=== PATIENT | male | born 1990 | race Caucasian/White ===

== ENCOUNTER 2017-04-06 15:23 | Emergency (ER) | payer BC ==
[2017-04-06 15:39] VITALS: BP 154/93
--- NOTE | 2017-04-06 16:07 | UC ---
Skin Complaint HPI - HPI Summary HPI Summary: 1.5 WEEKS OF TENDER RED FIRM AREA UNDER SCROTUM (PERINEUM) NO DRAINAGE. NO HISTORY OF ABSCESS OR MRSA. - History of Current Complaint Chief Complaint: UCSkin Time Seen by Provider: 04/06/17 15:29 Stated Complaint: PERSONAL Hx Obtained From: Patient Onset/Duration: Lasting Weeks Skin Exposure Onset/Duration: Weeks Ago Onset Severity: Moderate Current Severity: Moderate Location: Discrete - PERINEUM Character: Redness, Raised, Painful Aggravating: Touch Alleviating: Nothing Associated Signs & Symptoms: Positive: Tenderness, Red Streaks. Negative: Nausea, Vomiting, Fever, Chills, Cough, Hoarseness, Throat Tightening, Rash, Drainage Related History: Possible Reaction to: Environmental Exposure - Allergy/Home Medications Allergies/Adverse Reactions: Allergies Allergy/AdvReac Type Severity Reaction Status Date / Time Amoxicillin Allergy Intermediate hives/facial Verified 04/06/17 15:39 swelling Review of Systems Constitutional: Negative Skin: Other - 1CM X 1CM INDURATED TENDER AREA ON ANTERIOR PERINEUM Eyes: Negative ENT: Negative Respiratory: Negative Cardiovascular: Negative Gastrointestinal: Negative Genitourinary: Negative Motor: Negative Neurovascular: Negative Musculoskeletal: Negative Neurological: Negative Psychological: Negative Is Patient Immunocompromised?: No All Other Systems Reviewed And Are Negative: Yes PMH/Surg Hx/FS Hx/Imm Hx Previously Healthy: Yes - Surgical History Surgical History: Yes Surgery Procedure, Year, and Place: thyroidectomy - Family History Known Family History: Negative: Blood Disorder, Other - NO MRSA - Social History Occupation: Employed Full-time Alcohol Use: Occasionally Substance Use Type: Marijuana Substance Use Comment - Amount & Last Used: daily usage Smoking Status (MU): Former Smoker Type: Cigarettes Amount Used/How Often: 1 ppd Length of Time of Smoking/Using Tobacco: 5 yrs Have You Smoked in the Last Year: No When Did the Patient Quit Smoking/Using Tobacco: quit at age 20 Physical Exam Triage Information Reviewed: Yes Appearance: Well-Appearing, No Pain Distress, Well-Nourished Vital Signs: Initial Vital Signs Temp 98.5 F 04/06/17 15:32 Pulse 79 04/06/17 15:32 Resp 18 04/06/17 15:32 BP 154/93 04/06/17 15:32 Pulse Ox 100 04/06/17 15:32 Vital Signs Reviewed: Yes Eye Exam: Normal Eyes: Positive: Conjunctiva Clear ENT Exam: Normal ENT: Positive: Normal ENT inspection, Hearing grossly normal, Pharynx normal, TMs normal Dental Exam: Normal Neck exam: Normal Neck: Positive: Supple, Nontender, No Lymphadenopathy Respiratory Exam: Normal Respiratory: Positive: Chest non-tender, Lungs clear, Normal breath sounds, No respiratory distress, No accessory muscle use Cardiovascular Exam: Normal Cardiovascular: Positive: RRR, No Murmur, Pulses Normal Abdominal Exam: Normal Abdomen Description: Positive: Nontender, No Organomegaly Musculoskeletal Exam: Normal Musculoskeletal: Positive: Strength Intact, ROM Intact Neurological Exam: Normal Psychological Exam: Normal Skin: Positive: Other - 1CM X 1CM INDURATED TENDER AREA ON ANTERIOR PERINEUM Course/Dx - Differential Diagnoses - Skin Complaint Differential Diagnoses: Abscess, Cellulitis, Contact Dermatitis, Drug Rash, Impetigo, MRSA, Tinea - Diagnoses Provider Diagnoses: CELLULITIS ANTERIOR PERINEUM Discharge - Discharge Plan Condition: Stable Disposition: HOME Prescriptions: DOXYcycline CAP(*) [DOXYcycline 100MG CAP(*)] 100 mg PO BID #20 cap Patient Education Materials: Cellulitis (ED), Abscess (ED) Referrals: Lainey Gatica MD [Primary Care Provider] - Images Perineum Male: 1 - 1CM X 1CM INDURATED TENDER AREA ON ANTERIOR PERINEUM
== END 2017-04-06 16:05 | disposition home or self-care (01) ==
LOC: UCCORT 15:23
DX: L03.315 Cellulitis of perineum (principal); Z87.891 Personal history of nicotine dependence
CPT/HCPCS: 99212; G0463

== ENCOUNTER 2018-10-04 11:33 | Emergency (ER) | payer BC, OTHER ==
[2018-10-04 13:16] VITALS: BP 155/92
--- NOTE | 2018-10-04 13:28 | UC ---
General HPI - HPI Summary HPI Summary: tip of L 5th finger was pinched between a press and metal table at work this am. occured at 9:05am. no limited rom. - History of Current Complaint Chief Complaint: UCUpperExtremity Stated Complaint: WC - LEFT PINKY INJURY Time Seen by Provider: 10/04/18 13:08 Hx Obtained From: Patient Onset/Duration: Sudden Onset Timing: Constant Pain Intensity: 6 Associated Signs & Symptoms: Negative: Fever, Weakness - Allergy/Home Medications Allergies/Adverse Reactions: Allergies Allergy/AdvReac Type Severity Reaction Status Date / Time amoxicillin Allergy Facial Verified 10/04/18 13:10 Swelling, Hives Home Medications: Home Medications NK [No Home Medications Reported] 10/04/18 [History Confirmed 10/04/18] PMH/Surg Hx/FS Hx/Imm Hx Previously Healthy: Yes - Surgical History Surgical History: Yes Surgery Procedure, Year, and Place: Partial Thyroidectomy, 2018, [facility] - Family History Known Family History: Negative: Blood Disorder, Other - NO MRSA - Social History Occupation: Employed Full-time Alcohol Use: Occasionally Substance Use Type: Marijuana Substance Use Comment - Amount & Last Used: Daily Smoking Status (MU): Former Smoker Type: Cigarettes Amount Used/How Often: 1 ppd Length of Time of Smoking/Using Tobacco: 5 yrs Have You Smoked in the Last Year: No When Did the Patient Quit Smoking/Using Tobacco: 2010 - Immunization History Most Recent Tetanus Shot: ~2016 Hx Tetanus, Diphtheria Vaccination: Yes Vaccination Up to Date: Yes Review of Systems All Other Systems Reviewed And Are Negative: Yes Musculoskeletal: Positive: Other: - tenderness and superficial cut to nail of L 5th finger. finer has full s/v/m function. Physical Exam Triage Information Reviewed: Yes Appearance: Well-Appearing Vital Signs: Initial Vital Signs Temp 98 F 10/04/18 13:08 Pulse 70 10/04/18 13:08 Resp 16 10/04/18 13:08 BP 155/92 10/04/18 13:08 Pulse Ox 100 10/04/18 13:08 Vital Signs Reviewed: Yes Eyes: Positive: Conjunctiva Clear ENT: Positive: Normal ENT inspection Neck: Positive: Supple Respiratory: Positive: Lungs clear Cardiovascular: Positive: RRR Abdomen Description: Positive: Nontender Musculoskeletal: Positive: Other: - L 5th finger tip is tender. A superficial cut to the nail is noted. Superficial abrasion dorsal DIP joint. No subungual hematoma or bleeding. Finger has full s/v/m function. Neurological: Positive: Alert Psychological: Positive: Age Appropriate Behavior Skin Exam: Normal Diagnostics - Radiology No standard instances Radiology Interpretation Completed By: Radiologist - L 5th finger=IMPRESSION: NO EVIDENCE FOR FRACTURE Course/Dx - Course Course Of Treatment: FINGER CLEANED BY NURSING. SPLINT APPLIED BY NURSING. - Diagnoses Provider Diagnosis: Abrasion of left little finger, Contusion of left little finger Discharge - Sign-Out/Discharge Documenting (check all that apply): Patient Departure All imaging exams completed and their final reports reviewed: Yes - Discharge Plan Condition: Stable Disposition: HOME Patient Education Materials: Contusion in Adults (ED), Abrasion (ED) Referrals: Lainey Gatica MD [Primary Care Provider] - If Needed Additional Instructions: SPLINT NEEDED FOR COMFORT. - Billing Disposition and Condition Condition: STABLE Disposition: Home - Attestation Statements Provider Attestation: I was available for consult. This patient was seen by the JESS. The patient was not presented to, seen by, or examined by me. -Haley
== END 2018-10-04 13:56 | disposition home or self-care (01) ==
LOC: UCCORT 11:33
DX: S60.052A Contusion of left little finger without damage to nail, initial encounter (principal); W23.0XXA Caught, crushed, jammed, or pinched between moving objects, initial encounter; Y92.9 Unspecified place or not applicable
CPT/HCPCS: 73140; 99212; G0463